=== PATIENT | male | born 1955 | race African-American/Black ===

== ENCOUNTER 2017-09-06 22:31 | Inpatient (IN) | payer OTHER ==
[~2017-09-06] VITALS: Ht 165.1 cm; Wt 84.3 kg
[2017-09-06 22:43] LABS: HEMATOCRIT 44.5 % (42-54); LYMPHOCYTES % (AUTO) 15.2 % (21.0-51.0); MEAN CORPUSCULAR HEMOGLOBIN 27.4 pg (27.0-33.0); MEAN CORPUSCULAR HGB CONC 33.7 g/dL (32.0-36.0); MEAN CORPUSCULAR VOLUME 81.3 fL (79-99); MONOCYTES % (AUTO) 9.5 % (3.0-13.0); NEUTROPHILS % (AUTO) 74.3 % (40.0-77.0); PLATELET COUNT (AUTO) 250 K/uL (130-400); RED BLOOD CELL COUNT(AUTO) 5.47 MIL/uL (4.50-6.20); RED CELL DISTRIBUTION WIDTH 14.3 % (11.0-15.5); WHITE BLOOD COUNT (AUTO) 9.1 K/uL (4.8-10.8)
[2017-09-06] MEDS ORDERED: LORAZEPAM 2 MG/ML 1 ML VIAL ONE (22:44)
[2017-09-06] MEDS ORDERED: NITROGLYCERIN 0.4 MG SL TAB SL ONE (22:48)
[2017-09-06] MEDS ORDERED: NAPROXEN 250 MG TAB ONE (22:48)
[2017-09-06 22:55] LABS: INR 1.04 (0.85-1.15); PARTIAL THROMBOPLASTIN TIME 25.8 SEC (26.3-35.5); PROTHROMBIN TIME 10.9 SEC (9.6-11.6)
[2017-09-06 22:56] LABS: CREATININE 1.3 mg/dL (0.5-1.5); POTASSIUM 3.3 mmol/L (3.5-5.1)
[2017-09-06 23:28] LABS: ALBUMIN 4.2 g/dL (3.5-5.0); BILIRUBIN,TOTAL 0.9 mg/dL (0.2-1.0); CREATINE KINASE MB 11.3 ng/mL (0.5-3.6); TOTAL PROTEIN, SERUM 8.3 g/dL (6.0-8.3)
[2017-09-07] MEDS ORDERED: CHLORDIAZEPOXIDE HCL 25 MG CAP PO PRN (03:00)
[2017-09-07] MEDS ORDERED: HYDRALAZINE HCL 20 MG/ML VIAL IV PRN (03:00)
[2017-09-07] MEDS ORDERED: LORAZEPAM 2 MG/ML 1 ML VIAL IVP PRN (03:00)
[2017-09-07] MEDS ORDERED: ONDANSETRON HCL MDV 20ML 2 MG/ML VIAL IV PRN (03:00)
[2017-09-07] MEDS ORDERED: NITROGLYCERIN 0.4 MG SL TAB SL PRN (03:00)
[2017-09-07] MEDS ORDERED: ACETAMINOPHEN 325 MG TAB PO PRN (03:15)
[2017-09-07] MEDS ORDERED: POTASSIUM CHLORIDE 20MEQ/100ML 100 ML IV SCH (03:30)
[2017-09-07 05:37] LABS: CREATINE KINASE MB 11.1 ng/mL (0.5-3.6)
[2017-09-07] MEDS ORDERED: LIDOCAINE HCL-MPF 1% 2ML VIAL ONE (07:09)
[2017-09-07] MEDS ORDERED: POTASSIUM CHLORIDE 20MEQ/100ML 100 ML IV ONE (07:09)
[2017-09-07] MEDS ORDERED: FAMOTIDINE 20MG TAB 20 MG TAB ONE (08:14)
[2017-09-07] MEDS ORDERED: ENOXAPARIN SODIUM 40 MG/0.4 ML SYRINGE SQ ONE (08:15)
[2017-09-07] MEDS: ENOXAPARIN SODIUM 40 MG/0.4 ML SYRINGE SQ SCH (09:00)
[2017-09-07] MEDS: FOLIC ACID 1 MG TABLET PO SCH (09:00)
[2017-09-07] MEDS ORDERED: POTASSIUM CHLORIDE 20 MEQ/100 ML BAG IV SCH (09:00)
[2017-09-07] MEDS ORDERED: FAMOTIDINE 20MG TAB 20 MG TAB PO SCH (09:00)
[2017-09-07] MEDS: MULTIVITAMIN TABLET PO SCH (09:00)
[2017-09-07 11:51] LABS: AMPHET/METH SCREEN,URINE NEGATIVE (NEGATIVE); BARBITURATE SCREEN, URINE NEGATIVE (NEGATIVE); BENZODIAZEPINES SCREEN,URINE NEGATIVE (NEGATIVE); CANNABINOID SCREEN,URINE NEGATIVE (NEGATIVE); COCAINE SCREEN,URINE POSITIVE (NEGATIVE); OPIATE SCREEN,URINE NEGATIVE (NEGATIVE); PHENCYCLIDINE SCREEN,URINE NEGATIVE (NEGATIVE)
[2017-09-07 14:05] VITALS: BP 113/74
[2017-09-07 16:00] VITALS: BP 122/80
[2017-09-07 19:49] VITALS: BP 139/81
[2017-09-07 23:32] VITALS: BP 112/77
[2017-09-08 04:01] VITALS: BP 114/89
[2017-09-08] MEDS: FOLIC ACID 1 MG TABLET PO SCH (07:28)
[2017-09-08] MEDS: MULTIVITAMIN TABLET PO SCH (07:28)
[2017-09-08] MEDS: ENOXAPARIN SODIUM 40 MG/0.4 ML SYRINGE SQ SCH (07:28)
[2017-09-08 07:40] VITALS: BP 122/79
[2017-09-08 10:35] LABS: BASOPHILS % (AUTO) 0.7 % (0.0-5.0); EOSINOPHILS % (AUTO) 1.8 % (0.0-8.0); HEMATOCRIT 44.7 % (42-54); LYMPHOCYTES % (AUTO) 30.5 % (21.0-51.0); MEAN CORPUSCULAR HEMOGLOBIN 27.4 pg (27.0-33.0); MEAN CORPUSCULAR HGB CONC 33.7 g/dL (32.0-36.0); MEAN CORPUSCULAR VOLUME 81.2 fL (79-99); MONOCYTES % (AUTO) 9.5 % (3.0-13.0); NEUTROPHILS % (AUTO) 57.5 % (40.0-77.0); PLATELET COUNT (AUTO) 215 K/uL (130-400); RED CELL DISTRIBUTION WIDTH 14.5 % (11.0-15.5); WHITE BLOOD COUNT (AUTO) 4.8 K/uL (4.8-10.8)
[2017-09-08 10:46] LABS: POTASSIUM 3.9 mmol/L (3.5-5.1)
[2017-09-08] MEDS ORDERED: NAPR-1023 PO (11:54)
[2017-09-08] MEDS ORDERED: ASPI-1197 PO (11:54)
[2017-09-08] MEDS ORDERED: LISI10TA7 PO (11:54)
[2017-09-08 12:05] VITALS: BP 108/75
[2017-09-09] MEDS ORDERED: LISINOPRIL 10 MG TABLET PO SCH (09:00)
[2017-09-09] MEDS ORDERED: ASPIRIN 81MG TAB.CHEW PO SCH (09:00)
== END 2017-09-08 17:45 | disposition home or self-care (01) | DRG 558 ==
LOC: EDH 22:31 → EDHIP 22:32 → 2DH 09-07 12:28
PROVIDERS: ADMIT Internal Medicine Nephrology; ATTEND Internal Medicine Nephrology
DX: M62.82 Rhabdomyolysis (principal); F14.20 Cocaine dependence, uncomplicated; F17.210 Nicotine dependence, cigarettes, uncomplicated; E87.6 Hypokalemia; F10.10 Alcohol abuse, uncomplicated; I10 Essential (primary) hypertension; Z90.49 Acquired absence of other specified parts of digestive tract; Z96.642 Presence of left artificial hip joint; B19.20 Unspecified viral hepatitis C without hepatic coma
CPT/HCPCS: 36415; 71045; 80048; 80053; 80305; 82550; 82553; 83874; 84484; 85025; 85610; 85730; 93005; J1650; J2060; J3480; J3490

== ENCOUNTER → 2017-11-10 | Outpatient (CLI) | payer OTHER ==
[~2017-11-10] MED LIST: ASPI-1197 PO; LISI10TA7 PO; NAPR-1023 PO
== END | disposition home or self-care (01) ==
LOC: OIH 14:28
PROVIDERS: ATTEND Internal Medicine
DX: Z96.643 Presence of artificial hip joint, bilateral (principal)
CPT/HCPCS: 73521